=== PATIENT | female | born 1945 | race Caucasian/White ===

== ENCOUNTER 2023-06-05 04:01 | Emergency (ER) | payer BC, MEDICARE ==
[~2023-06-05] VITALS: Ht 152.4 cm; Wt 56.8 kg
[2023-06-05 04:08] VITALS: TEMP 97.7
[2023-06-05] MEDS ORDERED: TETanus/Pertussis (Acell)/Diphther VAC/PF (Tdap-Adult) 0.5ml syringe IMVAC ONE (07:10)
[2023-06-05] MEDS ORDERED: ceFAZolin 1gm IM kit IM ONE (07:10)
[2023-06-05] MEDS ORDERED: CEPH250T PO ×3 (09:32→09:44)
[2023-06-05] MEDS ORDERED: CEPH-585 PO (09:32)
[2023-06-05 09:46] VITALS: BP 123/68; PULSE 83; RESP 18; O2SAT 95
== END 2023-06-05 09:48 | disposition home or self-care (01) ==
LOC: ER 04:01
DX: S01.111A Laceration without foreign body of right eyelid and periocular area, initial encounter (principal); Z91.041 Radiographic dye allergy status; Z79.2 Long term (current) use of antibiotics; W06.XXXA Fall from bed, initial encounter; Y93.89 Activity, other specified; Y92.89 Other specified places as the place of occurrence of the external cause; Y99.8 Other external cause status
CPT/HCPCS: 12011; 70450; 90471; 90715; 96372; 99285; J0690